=== PATIENT | female | born 2000 | race Caucasian/White ===

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

== ENCOUNTER 2023-02-12 11:05 | Outpatient (CLI) | payer BC, SELFPAY ==
[2023-02-12 10:31] LABS: Abs Immature Grans 0.01 10^3/uL (0.0-0.06); Absolute Basophil Count 0.05 10^3/uL (0.0-0.2); Absolute Eosinophil Count 0.17 10^3/uL (0.0-0.7); Absolute Lymphocyte Count 2.19 10^3/uL (1.2-3.4); Absolute Monocyte Count 0.55 10^3/uL (0.1-0.8); Absolute Neutrophil Count 3.54 10^3/uL (1.2-6.7); Basophils % 0.8; Eosinophils % 2.6; HCT 42.5 % (36.0-46.0); HGB 14.4 g/dL (11.2-15.7); Immature Grans % 0.2; Lymphocytes % 33.6; MCH 28.7 pg (27.0-33.0); MCHC 33.9 % (32.0-36.0); MCV 85 fL (80-95); MPV 10.6 fL (8.0-11.0); Monocytes % 8.4; Neutrophils % 54.4; Platelet Count 348 10^3/uL (130-400); RBC 5.01 10^6/uL (3.93-5.22); RDW-SD 40.5 fL; WBC 6.51 10^3/uL (4.4-10.8)
[2023-02-12 10:35] LABS: Bilirubin Negative (Negative); Blood Negative (Negative); Clarity Clear (Clear); Glucose Negative (Negative); Ketones Negative (Negative); Leukocyte Esterase Trace (Negative); Nitrite Negative (Negative); Specific Gravity 1.025 (1.005-1.025); Urobilinogen 0.2 mg/dL (Up to 0.2); pH 6.5 (5-8)
[2023-02-12 10:43] LABS: Bacteria Few HPF (Negative); C & S Indicated? Yes; Casts Negative LPF (Negative); Crystals Negative HPF (Negative); Epithelial Cells Rare HPF (Negative); Mucus Negative (Negative); RBC 0-2 HPF (0-2)
[2023-02-12 11:05] LABS: Iron 59 ug/dL (50-170)
[2023-02-12 11:17] LABS: ALT 18 U/L (14-59); AST 13 U/L (15-37); Alkaline Phosphatase 96 U/L (46-116); Anion Gap 3.7 mmol/L (3-11); BUN 8 mg/dL (7-18); Bilirubin, Total 0.4 mg/dL (0.2-1.0); CO2 28.3 mmol/L (21.0-32.0); CREATININE 0.8 mg/dL (0.55-1.02); Calcium 9.5 mg/dL (8.5-10.1); Chloride 105 mmol/L (98-107); Cholesterol 138 mg/dL (<200); Estimated GFR 108.11 (mL/min/1.73m2); Ferritin 36 ng/mL (8-252); Glucose 97 mg/dL (74-106); HDL Cholesterol 48 mg/dL (40-60); Potassium 3.7 mmol/L (3.5-5.1); Sodium 137 mmol/L (136-145); TSH 1.02 uIU/mL (0.36-3.74); Total Protein 7.5 g/dL (6.4-8.2)
[2023-02-12 11:18] LABS: Triglyceride <25 mg/dL (<150)
[2023-02-12 11:22] LABS: Vitamin D 25 Total 18.8 ng/mL (30-100)
[2023-02-12 11:29] LABS: LDL CHOLESTEROL 78 mg/dL (<100)
[2023-02-12 11:51] LABS: FREE T4 0.79 ng/dL (0.76-1.46)
[2023-02-12 18:07] LABS: T3,Free 4.4 pg/mL (2.8-5.3)
[2023-02-13 10:14] LABS: Lyme Ab w Rflx to Lyme Confirm Negative (Negative)
[2023-02-15 13:01] LABS: Bartonella PCR Negative; Specimen Source BLOOD
[2023-02-19 14:03] LABS: Testosterone, Free 13.5 ng/dL (<0.13-1.08); Testosterone, Total 492 ng/dL (8-60)
== END 2023-02-12 11:06 | disposition home or self-care (01) ==
LOC: LBO 11:05
PROVIDERS: PCP Naturopath; Visit Provider Naturopath
DX: A69.20 Lyme disease, unspecified (principal); L70.0 Acne vulgaris; F34.1 Dysthymic disorder; A44.0 Systemic bartonellosis; K58.1 Irritable bowel syndrome with constipation; R00.2 Palpitations; E55.9 Vitamin D deficiency, unspecified; G44.209 Tension-type headache, unspecified, not intractable; J45.20 Mild intermittent asthma, uncomplicated; E03.9 Hypothyroidism, unspecified
CPT/HCPCS: 36415; 80053; 80061; 82306; 83721; 84402; 84403; 87801; 81003; 81015; 82728; 83540; 84439; 84443; 84481; 85025; 86618; 87086

== ENCOUNTER 2023-03-07 01:54 | Emergency (ER) | payer BC, SELFPAY ==
[2023-03-07] VITALS (14 sets, daily range): BP systolic 108–142; BP diastolic 68–84; PULSE 81–96; RESP 18; TEMP 37.1; O2SAT 95–99
--- NOTE | 2023-03-07 01:45 | RT.EKG_ITS ---
APPROVED REPORT Exam: Resting ECG Reason for Exam: SOB Patient Location: E HR:79 bpm ECG Measurements Heart Rate 79 AXIS NM 145 P 56 QRSd 85 QRS 72 QT 350 T -14 QTc 403 Conclusion Sinus rhythm.., V-rate 60- [address] segment or T wave abnormlaiteis to suggest occlusive IL.
--- NOTE | 2023-03-07 02:08 | ED.GENADUL_ITS ---
Discharge Plan Disposition Patient Disposition: Home Discharge Details Chief Complaint: SOB Clinical Impression: Viral URI, Chest pain Primary Care Provider: Cherelle Beaver ED Provider: Chela Conn Home Meds and New Rx's Prescriptions: No Action norgestimate-ethinyl estradiol [Sprintec (28)] 0.25-35 mg-mcg tablet 1 tab PO DAILY Qty: 28 12RF liothyronine 25 mcg Tablet Rx Instructions: unknown dose hydroxyzine HCl 25 mg tablet 25 mg PO BID PRN (Reason: anxiety) Qty: 10 0RF Discharge Instructions Instructions: Upper Respiratory Infection (ED) Additional Instructions: Take tylenol and/or ibuprofen over the counter for pain; follow the directions on the bottle. Use the albuterol inhaler 2 puffs up to every 2 hours as needed for shortness of breath. Call your primary care doctor today to schedule an appointment to follow up on your visit here. Return to the emergency department for new or worsening symptoms including fever, inability to keep down fluids, new/different/worse chest pain, difficulty breathing that does not respond to albuterol, or if you have any other concerns. Stand Alone Forms: School Release, Work Release Referrals: Cherelle Beaver [Primary Care Provider] - Medical Decision Making 22yo AFAB with hx of hypothyroid presenting for shortness of breath. History from patient and family at bedside. Symptoms started 2-3 days ago and have been worsening. Roommate COVID +. Pt with DILL, substernal chest tightness, cough, rhinnorhea, sore throat. No fevers. Vital signs reassuring on arrival. Well appearing on exam, possibly diffusely diminished breath sounds; will treat with albuterol inhaler. No concerning for pneumonia. EKG NSR, appropriate intervals, no ST segment or T wave abnormalities to suggest occlusive DC. Symptoms most likely viral URI but pt does report a pleuritic component to chest tightness so will screen with labs including dimer and troponin. Labs reviewed as below, . Respiratory viral swab . On reassessment HPI General Date/Time Provider Initiated Documentation: 03/07/23 01:55 . Limitations to Documentation: no limitations . Information obtained by: patient and family . HPI Narrative: 22yo AFAB with hx of hypothyroid presenting for shortness of breath. History from patient and family at bedside. Symptoms started 2-3 days ago and have been worsening. Has dyspnea on exertion as well as substernal chest tightness, pain with expiration. No lightheadedness, presyncope, LE edema, orthopnea, or other concerns. Mild nausea, no vomiting or abdominal pain. Roommate is COVID +. Related Data Home Medications Medication Instructions Recorded Confirmed norgestimate 0.25 mg-ethinyl 1 tab PO DAILY #28 tabs 08/24/19 02/20/20 estradiol 35 mcg tablet (Sprintec (28)) hydroxyzine HCl 25 mg tablet 25 mg PO BID PRN anxiety #10 tabs 02/20/20 liothyronine 25 mcg tablet mcg 02/20/20 Previous Rx's Medication Instructions Recorded norgestimate 0.25 mg-ethinyl 1 tab PO DAILY #28 tabs 08/24/19 estradiol 35 mcg tablet (Sprintec (28)) hydroxyzine HCl 25 mg tablet 25 mg PO BID PRN anxiety #10 tabs 02/20/20 Allergies Allergy/AdvReac Type Severity Reaction Status Date / Time No Known Allergies Allergy Unverified 02/20/20 15:55 General Stated Complaint: SOB JIMMIE: 3 Review of Systems Narrative: see HPI PFSH All Active Problems (Updated 03/07/23 @ 03:52 by Chela Conn MD) Chest pain (Acute) Viral URI (Acute) Contraception (Acute) Medical History (Updated 03/07/23 @ 03:52 by hCela Conn MD) Dysmenorrhea in adolescent Family History Father Kidney transplant recipient Hypertension Mother Thyroid disorder Social History Smoking/Tobacco Use Status: Never Smoking risk assessment performed?: Yes Alcohol Intake: never Drug use: Never Substance use type: does not use Details: answered in presence of father Do you feel safe at home: Yes Do you feel safe in your relationship?: Yes Additional Social history: answered alone Exam Narrative Exam Narrative: General: Alert, well appearing Head: Normocephalic, atraumatic Neck: Trachea midline, ?Neck supple. Cardiac: ?RRR, no murmurs appreciated Resp: No respiratory distress. Slightly diminished breath sounds, no wheeze. Abd: ?Soft, non-distended, nontender Extremities: ?No deformities.? No peripheral edema. Neurologic: GCS 15. ? Moves all extremities freely against gravity Course Vital Signs Vital signs: Vital Signs Temperature 37.1 C 03/07/23 02:00 Pulse 81 03/07/23 02:00 Respiratory Rate 18 03/07/23 02:00 Blood Pressure 142/84 H 03/07/23 02:00 Pulse Oximetry 96 03/07/23 02:00 Temperature 37.1 C 03/07/23 02:00 Pulse 96 H 03/07/23 02:04 Respiratory Rate 18 03/07/23 02:04 Respiratory Effort Normal, Short of Breath 03/07/23 02:04 Respiratory Depth Normal 03/07/23 02:04 Respiratory Pattern Normal 03/07/23 02:04 Blood Pressure 142/84 H 03/07/23 02:04 Blood Pressure Position Sitting 03/07/23 02:04 Pulse Oximetry 95 03/07/23 02:04 Oxygen Delivery Method Room Air 03/07/23 02:04 Oxygen Flow Rate 0 03/07/23 02:00 Pain Level 6 03/07/23 02:04
[2023-03-07] MEDS: Albuterol HFA 8 GM 60 PUFF INH IH (02:30)
[2023-03-07 02:37] LABS: Abs Immature Grans 0.09 10^3/uL (0.0-0.06); Absolute Basophil Count 0.04 10^3/uL (0.0-0.2); Absolute Eosinophil Count 0.17 10^3/uL (0.0-0.7); Absolute Lymphocyte Count 1.99 10^3/uL (1.2-3.4); Absolute Monocyte Count 1.09 10^3/uL (0.1-0.8); Absolute Neutrophil Count 4.24 10^3/uL (1.2-6.7); Basophils % 0.5; Eosinophils % 2.2; HCT 40.4 % (36.0-46.0); HGB 14.2 g/dL (11.2-15.7); Immature Grans % 1.2; Lymphocytes % 26.1; MCH 29.8 pg (27.0-33.0); MCHC 35.1 % (32.0-36.0); MCV 85 fL (80-95); MPV 10.8 fL (8.0-11.0); Monocytes % 14.3; Neutrophils % 55.7; Platelet Count 278 10^3/uL (130-400); RBC 4.77 10^6/uL (3.93-5.22); RDW 12.7 % (11.7-14.6); RDW-SD 39.4 fL; WBC 7.62 10^3/uL (4.4-10.8)
[2023-03-07] MEDS: Inhaler, Assist Device 1 EACH MC (02:46)
[2023-03-07 02:50] LABS: ALT 15 U/L (14-59); AST 13 U/L (15-37); Albumin 3.7 g/dL (3.4-5.0); Alkaline Phosphatase 78 U/L (46-116); BUN 8 mg/dL (7-18); Bilirubin, Total 0.3 mg/dL (0.2-1.0); CREATININE 0.8 mg/dL (0.55-1.02); Calcium 9.5 mg/dL (8.5-10.1); Chloride 102 mmol/L (98-107); Estimated GFR 108.11 (mL/min/1.73m2); Glucose 104 mg/dL (74-106); Potassium 3.3 mmol/L (3.5-5.1); Sodium 139 mmol/L (136-145); Total Protein 7.1 g/dL (6.4-8.2); Troponin I < 50 ng/L (<or=60)
[2023-03-07 03:06] LABS: COVID-19 PCR Negative (Negative); Influenza A PCR Negative (Negative); Influenza B PCR Negative (Negative); RSV PCR Negative (Negative)
[2023-03-07 03:09] LABS: Source Nasopharynx
[2023-03-07 03:42] LABS: D-Dimer 188 ng/mlFEU (<500)
[2023-03-07] MEDS: Ketorolac 15 MG/ML VIAL IVP (03:59)
== END 2023-03-07 04:09 | disposition home or self-care (01) ==
PROVIDERS: Emergency Provider Student in an Organized Health Care Education/Training Program; PCP Naturopath
DX: R07.9 Chest pain, unspecified (principal); R06.02 Shortness of breath
CPT/HCPCS: 80053; 81025; 87637; 93005; 96372; 99283; 84484; 85025; 85379; 93010; J1885

== ENCOUNTER 2023-08-10 02:47 | Emergency (ER) | payer BC, SELFPAY ==
[2023-08-10 02:49] VITALS: PULSE 76; RESP 18; TEMP 36.9; O2SAT 99
[2023-08-10 02:55] VITALS: PULSE 76; RESP 18; TEMP 36.9; O2SAT 99
--- NOTE | 2023-08-10 03:11 | ED.GENADUL_ITS ---
Discharge Plan Disposition Patient Disposition: Home Condition: Good Discharge Details Clinical Impression: Pain, dental Primary Care Provider: Cherelle Beaver ED Provider: Mauri Leyva Home Meds and New Rx's Prescriptions: New amoxicillin 500 mg capsule 500 mg PO Q8H 7 Days Qty: 21 0RF No Action norgestimate-ethinyl estradiol [Sprintec (28)] 0.25-35 mg-mcg tablet 1 tab PO DAILY Qty: 28 12RF liothyronine 25 mcg Tablet 25 mcg PO DAILY Rx Instructions: unknown dose hydroxyzine HCl 25 mg tablet 25 mg PO BID PRN (Reason: anxiety) Qty: 10 0RF Discharge Instructions Instructions: Toothache (ED) Additional Instructions: The block we administered should help improve your pain. Please take 800 mg of ibuprofen every 6 hours and 1000 mg of Tylenol every 6 hours to help with the inflammation and pain. These are the maximum doses. Please take the antibiotic as directed to help with the infection in your tooth. Please follow-up closely with your dentist for your procedure. If you notice any worsening of your symptoms, or any new symptoms such as difficulty swallowing, difficulty breathing, vomiting, diarrhea, fever, chills, shortness of breath, chest pain, numbness, weakness, or fainting , please return immediately to the emergency department for reevaluation. Please follow up with your primary care provider as soon as possible for reassessment and reevaluation. As always, it was a pleasure participating in your medical care today. Referrals: Cherelle Beaver [Primary Care Provider] - [facility] General Date/Time Provider Initiated Documentation: 08/10/23 02:54 . [facility] Narrative: This is a 23-year-old patient who presents today for evaluation of right upper dental pain. Patient has had mild pain in that area with known mild infection, and is scheduled to get a root canal in 24 hours, unfortunately pain has slightly worsened over the last day or so, despite Tylenol and Motrin. Patient presents for further evaluation. Patient denies any difficulty breathing, drinking, or swallowing. No fever. No other complaints at this time. Patient did take a single dose of previous leftover amoxicillin tonight. Related Data Home Medications Medication Instructions Recorded Confirmed norgestimate 0.25 mg-ethinyl 1 tab PO DAILY #28 tabs 08/24/19 08/10/23 estradiol 35 mcg tablet (Sprintec (28)) hydroxyzine HCl 25 mg tablet 25 mg PO BID PRN anxiety #10 tabs 02/20/20 08/10/23 liothyronine 25 mcg tablet 25 mcg PO DAILY 02/20/20 08/10/23 amoxicillin 500 mg capsule 500 mg PO Q8H 7 days #21 caps 08/10/23 Previous Rx's Medication Instructions Recorded norgestimate 0.25 mg-ethinyl 1 tab PO DAILY #28 tabs 08/24/19 estradiol 35 mcg tablet (Sprintec (28)) hydroxyzine HCl 25 mg tablet 25 mg PO BID PRN anxiety #10 tabs 02/20/20 amoxicillin 500 mg capsule 500 mg PO Q8H 7 days #21 caps 08/10/23 Allergies Allergy/AdvReac Type Severity Reaction Status Date / Time No Known Allergies Allergy Unverified 08/10/23 03:00 General Stated Complaint: DentalOral JIMMIE: 4 Review of Systems All systems reviewed & are unremarkable except as noted in HPI and below Exam Narrative Exam Narrative: 1.Const: Well-nourished, Well-developed, appearing stated age 2.Eyes: PERRL, no conjunctival injection, and symmetrical lids. 3.ENT: Atraumatic external nose and ears. Moist MM. Neck: Symmetric, trachea midline, No thyromegaly. No evidence of severe dental caries. Right upper posterior molar does demonstrate a small dental carry, no evidence of periapical abscess or swelling or Ludewig's angina. 4.CVS: +S1/S2, No murmurs or gallops. Peripheral pulses 2+ and equal in all extremities. Brisk capillary refill in all extremities. 5.RESP: Unlabored respiratory effort. Clear to auscultation bilaterally. No w heezes rales or rhonchi 6.GI: Soft, Nontender/Nondistended, No hepatosplenomegaly. No guarding or rebound. 7.MSK: Normocephalic/Atraumatic, Extremities w/o deformity or ttp No cyanosis or clubbing, Normal movement of all extremities 8.Skin: Warm, Dry. No rashes or lesions. 9.Neuro: deputy chief magistrate II-XII grossly intact. Sensation grossly intact, no focal neurologic deficits. 10.Psych: (AAO) x3. Appropriate mood and affect Course Vital Signs Vital signs: Vital Signs Temperature 36.9 C 05/19/24 02:49 Pulse 76 08/10/23 02:49 Respiratory Rate 18 08/10/23 02:49 Pulse Oximetry 99 08/10/23 02:49 Temperature 36.9 C 08/10/23 02:55 Temperature Source Temporal Artery Scan 08/10/23 02:55 Pulse 76 08/10/23 02:55 Respiratory Rate 18 08/10/23 02:55 Respiratory Effort Normal, Non-Labored 08/10/23 02:54 Blood Pressure Position Sitting 08/10/23 02:55 Pulse Oximetry 99 08/10/23 02:55 Oxygen Delivery Method Room Air 08/10/23 02:55 Oxygen Flow Rate 0 08/10/23 02:49 Pain Level 8 08/10/23 02:55 Procedures Nerve Block Nerve Block 1: Time out performed: Yes Local Anesthetic: Bupivicaine 0.5% Amount of anesthesia used (mL): 4 Side: right Intraoral Nerve Block: supraperiosteal Procedure Successful: Yes Patient Tolerated Procedure: well and no complications Complications: none Medical Decision Making This is a 23-year-old patient who presents today for evaluation of right upper dental pain. Patient has had mild pain in that area with known mild infection, and is scheduled to get a root canal in 24 hours, unfortunately pain has slightly worsened over the last day or so, despite Tylenol and Motrin. Patient presents for further evaluation. Patient denies any difficulty breathing, drinking, or swallowing. No fever. No other complaints at this time. Patient did take a single dose of previous leftover amoxicillin tonight. Exam demonstrates well-appearing patient, no signs of Ludewig's angina, periapical abscess or other large abnormality. Suspect mild pulpitis causing the patient's symptoms. Will recommend continued NSAID therapy, we did offer dental block, and patient has consented for block. Block was administered and pain improved. Patient tolerated this well. Will give prescription for amoxicillin for home use, 800 mg 3 times daily. Discussed red flags for which to return. I have extensively reviewed the treatment plan and discharge instructions with the patient and their family. I have addressed all patient concerns at this time. The patient and family was made aware of what symptoms to monitor for that would warrant a return to the emergency department. Discussed the plan with the patient and family, they demonstrate verbal understanding and agreement with our assessment and plan at this time. The documentation in this chart was dictated using [employer] dictation software. Please excuse any dictation errors. Quality:SDOH Health Related Social Needs: No Data to Display PFSH All Active Problems Pain, dental (Acute) Contraception (Acute) Medical History Dysmenorrhea in adolescent Family History Father Kidney transplant recipient Hypertension Mother Thyroid disorder Social History Smoking/Tobacco Use Status: Never Smoking risk assessment performed?: Yes Alcohol Intake: current Alcohol Intake frequency: a few times a month Drug use: Rarely Substance use type: marijuana Do you feel safe at home: Yes Do you feel safe in your relationship?: Yes Additional Social history: answered alone
[2023-08-10] MEDS: Bupivacaine 0.5% Pres-Free 30 ML VIAL (03:19)
[2023-08-10] MEDS: Amoxicillin 500 MG CAP PO (03:19)
== END 2023-08-10 03:20 | disposition home or self-care (01) ==
PROVIDERS: Emergency Provider Student in an Organized Health Care Education/Training Program; PCP Naturopath
DX: K08.89 Other specified disorders of teeth and supporting structures (principal)
CPT/HCPCS: 64400; 99283; J0665

== ENCOUNTER 2023-08-10 20:57 | Emergency (ER) | payer BC, SELFPAY ==
[2023-08-10 21:02] VITALS: BP 131/73; PULSE 68; RESP 16; TEMP 36.5; O2SAT 98
[2023-08-10 21:09] VITALS: BP 131/73; PULSE 68; RESP 16; TEMP 36.5; O2SAT 98
--- NOTE | 2023-08-10 21:12 | ED.GENADUL_ITS ---
Discharge Plan Disposition Patient Disposition: Home Condition: Stable Discharge Details Clinical Impression: Pain, dental Primary Care Provider: Cherelle Beaver ED Provider: Kamla Carmona Home Meds and New Rx's Prescriptions: No Action liothyronine 25 mcg Tablet 25 mcg PO DAILY Rx Instructions: unknown dose hydroxyzine HCl 25 mg tablet 25 mg PO BID PRN (Reason: anxiety) Qty: 10 0RF testosterone cypionate 200 mg/mL oil 200 mg IM Q7D Patient Comments: take weekly amoxicillin 500 mg capsule 500 mg PO Q8H 7 Days Qty: 21 0RF Discharge Instructions Instructions: Toothache (ED) Additional Instructions: use medications as prescribed and follow up with dentist tomorrow as scheduled HPI General Date/Time Provider Initiated Documentation: 08/10/23 21:06 . HPI Narrative: 30-year-old gentleman presents for evaluation of dental pain. Patient presented last night with similar symptoms and has a dentist appointment tomorrow morning for a root canal. Reports the pain is localized to the back upper right tooth. He reports pain has been constant all day not relieved with Motrin or Tylenol that he has been taking as directed. Denies any fevers, drainage or significant facial swelling. Related Data Home Medications Medication Instructions Recorded Confirmed hydroxyzine HCl 25 mg tablet 25 mg PO BID PRN anxiety #10 tabs 02/20/20 08/10/23 liothyronine 25 mcg tablet 25 mcg PO DAILY 02/20/20 08/10/23 amoxicillin 500 mg capsule 500 mg PO Q8H 7 days #21 caps 08/10/23 08/10/23 testosterone cypionate 200 mg/mL 200 mg IM Q7D 08/10/23 08/10/23 intramuscular oil Previous Rx's Medication Instructions Recorded hydroxyzine HCl 25 mg tablet 25 mg PO BID PRN anxiety #10 tabs 02/20/20 amoxicillin 500 mg capsule 500 mg PO Q8H 7 days #21 caps 08/10/23 Allergies Allergy/AdvReac Type Severity Reaction Status Date / Time No Known Allergies Allergy Unverified 08/10/23 21:00 General Stated Complaint: DentalOral JIMMIE: 4 Exam Narrative Exam Narrative: Review of Systems: All systems reviewed & are unremarkable except as noted in HPI and below Well-developed, no acute distress NCAT PERRL, normal conjunctiva No facial swelling, no gingival irritation, swelling or signs of an abscess There is tenderness around the posterior molars of the right upper teeth RRR Unlabored respiratory effort Nondistended abdomen Extremities w/o deformity, no cyanosis, no edema No rashes or lesions. no focal neurologic deficits Appropriate mood and affect Course Vital Signs Vital signs: Vital Signs Temperature 36.5 C 08/10/23 21:02 Pulse 68 08/10/23 21:02 Respiratory Rate 16 08/10/23 21:02 Blood Pressure 131/73 08/10/23 21:02 Pulse Oximetry 98 08/10/23 21:02 Temperature 36.5 C 08/10/23 21:09 Temperature Source Temporal Artery Scan 08/10/23 21:09 Pulse 68 08/10/23 21:09 Respiratory Rate 16 08/10/23 21:09 Respiratory Effort Normal, Non-Labored 08/10/23 21:04 Blood Pressure 131/73 08/10/23 21:09 Blood Pressure Position Sitting 08/10/23 21:09 Pulse Oximetry 98 08/10/23 21:09 Oxygen Delivery Method Room Air 08/10/23 21:09 Oxygen Flow Rate 0 08/10/23 21:09 Pain Level 5 08/10/23 21:09 Medical Decision Making Evaluation of persistent dental pain. On examination, there is no evidence of odontogenic abscess or dental trauma. The patient is scheduled for a root canal tomorrow. He is just looking for pain control to get through the night. Will give a dose of narcotic medication here in the ER and then sent home with [place]. Will also provide topical analgesia in the form of the hurricane gel. Quality:SDOH Health Related Social Needs: No Data to Display PFSH All Active Problems Pain, dental (Acute) Contraception (Acute) Medical History Dysmenorrhea in adolescent Family History Father Kidney transplant recipient Hypertension Mother Thyroid disorder Social History Smoking/Tobacco Use Status: Never Smoking risk assessment performed?: Yes Alcohol Intake: current Alcohol Intake frequency: a few times a month Drug use: Rarely Substance use type: marijuana Housing: apartment Do you feel safe at home: Yes Do you feel safe in your relationship?: Yes Additional Social history: answered alone
[2023-08-10] MEDS: oxyCODONE 5 MG TAB PO (21:23)
[2023-08-10] MEDS: Benzocaine 20% Gel 30 GM JAR MM (21:23)
== END 2023-08-10 21:24 | disposition home or self-care (01) ==
LOC: ER 21:29
PROVIDERS: Emergency Provider Emergency Medicine; PCP Naturopath
DX: K08.89 Other specified disorders of teeth and supporting structures (principal)
CPT/HCPCS: 99283

== ENCOUNTER 2023-10-20 15:00 | Outpatient (REF) | payer BC, SELFPAY ==
--- NOTE | 2023-10-20 11:45 | PAPFT_PTH ---
PATIENT: Mich Alvarez LOC: [facility] U#:[id number] AGE/SX: 23/F ROOM: RE10/20/[address]: Cherelle Beaver : 2000 BED: DIS: 10/20/2023 SPEC #: [id number] RECD: 10/21/23 17:23 STATUS: IFTIKHAR REDane #: [id number] ABIEL: 10/20/23 11:[address]: Cherelle Beaver DEPT: [facility] Cytology RECD BY: Ericka Moody Tissues: 1 - CX/ENDOCX FOR PAP SMEARS Procedures: PAP THIN PREP/[facility] Screening Comments: [id number] (CHLAMYDIA/GC)
[2023-10-22 12:48] LABS: Chlamydia Result Negative (Negative); GC Result Negative (Negative)
== END 2023-10-20 15:01 | disposition home or self-care (01) ==
LOC: LBN 15:00
PROVIDERS: PCP Naturopath; Visit Provider Naturopath
DX: Z12.4 Encounter for screening for malignant neoplasm of cervix (principal); Z01.419 Encounter for gynecological examination (general) (routine) without abnormal findings
CPT/HCPCS: 87491; 87591; 88142

== ENCOUNTER 2025-01-28 02:57 | Outpatient (CLI) | payer BC, SELFPAY ==
[2025-01-28 07:30] LABS: Kit/Specimen SENT
[2025-01-28 08:32] LABS: Iron 93 ug/dL (50-170)
[2025-01-28 08:44] LABS: TSH 2.14 uIU/mL (0.36-3.74)
[2025-01-28 09:20] LABS: Folate 4.5 ng/mL (8.6-20.0); Vitamin B12 703 pg/mL (193-986); Vitamin D 25 Total 20 ng/mL (30-100)
[2025-01-28 17:23] LABS: T3,Free 3.9 pg/mL (2.8-5.3)
== END 2025-01-28 02:58 | disposition home or self-care (01) ==
PROVIDERS: PCP Naturopath; Visit Provider Naturopath
DX: M62.81 Muscle weakness (generalized) (principal); M79.2 Neuralgia and neuritis, unspecified; A44.0 Systemic bartonellosis; R00.2 Palpitations; M25.511 Pain in right shoulder; A69.20 Lyme disease, unspecified; G44.209 Tension-type headache, unspecified, not intractable; R59.0 Localized enlarged lymph nodes; E55.9 Vitamin D deficiency, unspecified; J45.20 Mild intermittent asthma, uncomplicated; R42 Dizziness and giddiness; R53.83 Other fatigue; D53.9 Nutritional anemia, unspecified; E07.9 Disorder of thyroid, unspecified
CPT/HCPCS: 36415; 82306; 86812; 87522; 82607; 82746; 83540; 84439; 84443; 84481; 86038